=== PATIENT | female | born 1975 | race Caucasian/White ===

== ENCOUNTER → 2017-12-19 | Outpatient (CLI) | payer BC ==
[~2017-12-19] MED LIST: IBUPROFEN600 MG PO; PERCOCET 5/321 UDTAB PO; PREMARIN 1.251.25 MG PO; ZOFRAN 8MG8 MG PO
== END ==
LOC: MC.RAD 09:40
DX: Z12.31 Encounter for screening mammogram for malignant neoplasm of breast (principal)

== ENCOUNTER → 2020-05-03 | Outpatient (CLI) | payer BC | LOC: MC.RAD 09:05 | DX: Z12.31 Encounter for screening mammogram for malignant neoplasm of breast (principal) ==

== ENCOUNTER → 2020-07-30 | Outpatient (CLI) | payer BC | LOC: COL.RAD 07-20 09:00 | DX: K76.0 Fatty (change of) liver, not elsewhere classified (principal) ==

== ENCOUNTER → 2021-07-29 | Outpatient (CLI) | payer BC | LOC: MC.RAD 07:22 | DX: Z12.31 Encounter for screening mammogram for malignant neoplasm of breast (principal) ==

== ENCOUNTER → 2023-10-18 | Outpatient (CLI) | payer BC | LOC: MC.RAD 06:57 | DX: Z12.31 Encounter for screening mammogram for malignant neoplasm of breast (principal); Z01.419 Encounter for gynecological examination (general) (routine) without abnormal findings ==